=== PATIENT | female | born 2000 | race Hispanic/Latino ===

== ENCOUNTER 2023-06-23 18:00 | Inpatient (IN) | payer OTHER ==
[~2023-06-23 18:00] MED LIST: Bupivacaine 0.25% HCL 30 ML VIAL ONE; ePHEDrine 50 MG/ML VIAL ONE
[2023-06-23] MEDS ORDERED: Lidocaine 1% (PF) 30 ML VIAL SC PRN (20:41)
[2023-06-23] MEDS ORDERED: Tranexamic Acid 1,000 MG/10 ML VIAL IVP PRN (20:41)
[2023-06-23] MEDS ORDERED: hydrALAZINE 20 MG/ML VIAL SLOW IVP PRN (20:41)
[2023-06-23] MEDS ORDERED: Misoprostol 200 MCG TAB PR PRN (20:41)
[2023-06-23] MEDS ORDERED: Ondansetron PF 4 MG/2 ML Vial IVP PRN (20:41)
[2023-06-23] MEDS ORDERED: Methylergonovine 0.2 MG/ML VIAL IM PRN (20:41)
[2023-06-23] MEDS ORDERED: Carboprost 250 MCG/ML AMP IM PRN (20:41)
[2023-06-23] MEDS ORDERED: Promethazine HCl 25 MG/ML VIAL IM PRN (20:41)
[2023-06-23] MEDS ORDERED: Diphenoxylate HCl/Atropine Tablet PO PRN (20:41)
[2023-06-23] MEDS ORDERED: Penicillin G Potassium 5 MILL.UNITS in Sodium Chloride 0.9% 100 ML IVPB SCH (20:45)
[2023-06-23] MEDS ORDERED: Oxytocin 30 units/NS 500 ML 500 ML IV SCH ×2 (20:45)
[2023-06-23 21:31] LABS: Hematocrit 38.8 % (34.9-44.5); Hemoglobin 13.4 g/dL (12.0-15.5); Mean Corpuscular HGB CONC 34.5 g/dL (32.0-36.0); Mean Corpuscular Hemoglobin 30.1 pg (27.0-33.0); Mean Corpuscular Volume 87.2 fl (81.6-98.3); RBC Distribution Width 13.4 % (11.5-14.5); Red Blood Cell (RBC) Count 4.45 10x6/uL (3.90-5.03); White Blood Cell (WBC) Count 9.6 10x3/uL (3.5-10.5)
[2023-06-23 21:32] LABS: Mean Platelet Volume 11.3 fl (7.4-10.4); Platelet Count 248 10x3/uL (130-400)
[2023-06-23] MEDS: Misoprostol 100 MCG TAB VAG SCH (22:00)
[2023-06-23 22:14] LABS: HBSAg Index 0.13 S/CO (0-0.99); Hep B Surf Ag - L&D Non-Reactive S/CO (NonReactive)
[2023-06-23 22:15] LABS: Syphilis Antibody Nonreactive (Nonreactive); Syphilis Antibody Index 0.05 S/CO (<1.00 Non-Reactive)
[2023-06-24] MEDS: Misoprostol 100 MCG TAB VAG SCH ×3 (01:20→15:57)
[2023-06-24] MEDS: Penicillin G 2.5 MILL.units 2.5 MILL.UNITS in Premix 1 BAG IVPB SCH ×3 (02:52→14:14)
[2023-06-25] MEDS: Penicillin G 2.5 MILL.units 2.5 MILL.UNITS in Premix 1 BAG IVPB SCH ×4 (00:02→18:30)
[2023-06-25] MEDS ORDERED: fentaNYL 50 mcg/mL 1 mL Vial SLOW IVP PRN (03:23)
[2023-06-25] MEDS ORDERED: fentaNYL 50 mcg/mL 1 mL Vial ONE (06:41)
[2023-06-25] MEDS: fentaNYL 50 mcg/mL 1 mL Vial ONE (06:44)
[2023-06-25] MEDS: Lactated Ringer's 1,000 ML IV SCH ×2 (07:33→14:26)
[2023-06-25] MEDS ORDERED: fentaNYL 50 mcg/mL 1 mL Vial SLOW IVP SCH (08:00)
[2023-06-25] MEDS ORDERED: fentaNYL/Ropivacaine Epidural 100 ML ONE (08:49)
[2023-06-25] MEDS ORDERED: Lactated Ringer's 500 ML IV PRN (09:35)
[2023-06-25] MEDS ORDERED: Promethazine HCl 25 MG/ML VIAL IM PRN (09:35)
[2023-06-25] MEDS ORDERED: Ondansetron PF 4 MG/2 ML Vial IVP PRN (09:35)
[2023-06-25] MEDS ORDERED: Naloxone HCl 0.4 mg/ml Vial IVP PRN ×2 (09:35)
[2023-06-25] MEDS ORDERED: Acetaminophen 325 MG TAB PO PRN ×2 (09:35→21:10)
[2023-06-25] MEDS ORDERED: Moisturizing Cream (Eucerin) 113 GM JAR TOP PRN (09:35)
[2023-06-25] MEDS ORDERED: diphenhydrAMINE 50 MG/ML VIAL IVP PRN (09:35)
[2023-06-25] MEDS ORDERED: ePHEDrine Sulfate 50 MG/10 ML VIAL SLOW IVP PRN (09:35)
[2023-06-25] MEDS ORDERED: fentaNYL 2 mcg/Ropivacaine 0.2% Epidural 100 ML CADD EPIDURAL SCH (09:45)
[2023-06-25] MEDS ORDERED: Communication Order-Pharmacy FS SCH (09:45)
[2023-06-25] MEDS ORDERED: Lidocaine 1% (PF) 30 ML VIAL ONE (20:35)
[2023-06-25] MEDS ORDERED: Benzocaine-Menthol 82.5 ML CAN TOP PRN (21:07)
[2023-06-25] MEDS ORDERED: Lanolin Ointment 7 GM TUBE TOP PRN (21:07)
[2023-06-25] MEDS ORDERED: hydrALAZINE 20 MG/ML VIAL SLOW IVP PRN (21:07)
[2023-06-25] MEDS ORDERED: Milk Of Magnesia 30 ML UDCUP PO PRN (21:07)
[2023-06-25] MEDS ORDERED: Bisacodyl 10 MG SUPP PR PRN (21:07)
[2023-06-25] MEDS ORDERED: Boostrix 0.5 ML (Tdap) VIAL (>/=7 yrs of age) IM ONE (21:07)
[2023-06-25] MEDS ORDERED: Ibuprofen 800 MG TAB PO SCH (22:00)
[2023-06-25] MEDS: Ibuprofen 800 MG TAB PO SCH (23:44)
[2023-06-26 01:19] VITALS: BMI 42.0
[2023-06-26] MEDS: Ferrous Sulfate 325 MG TAB PO SCH ×2 (07:18→07:19)
[2023-06-26] MEDS: Misoprostol 100 MCG TAB VAG SCH ×3 (07:21→07:25)
[2023-06-26] MEDS: Penicillin G 2.5 MILL.units 2.5 MILL.UNITS in Premix 1 BAG IVPB SCH ×2 (07:21→07:24)
[2023-06-26] MEDS: fentaNYL 50 mcg/mL 1 mL Vial ONE (07:22)
[2023-06-26] MEDS: Docusate 100 MG CAP PO SCH ×2 (08:35→21:31)
[2023-06-26] MEDS: Prenatal Vitamin 1 TAB PO SCH (08:35)
[2023-06-26] MEDS: Ibuprofen 800 MG TAB PO SCH ×2 (08:36→15:48)
[2023-06-26] MEDS ORDERED: Polyethylene Glycol 3350 17 GM Packet PO PRN (10:49)
[2023-06-27] MEDS: Ibuprofen 800 MG TAB PO SCH ×2 (00:26→07:49)
[2023-06-27 07:46] VITALS: BP 104/50; TEMP 97.9
[2023-06-27] MEDS: Docusate 100 MG CAP PO SCH (07:48)
[2023-06-27] MEDS: Prenatal Vitamin 1 TAB PO SCH (07:48)
[2023-06-27] MEDS: Ferrous Sulfate 325 MG TAB PO SCH (10:52)
== END 2023-06-27 13:30 | disposition home or self-care (01) | DRG 807 ==
LOC: CSHLD 19:03 → CSHPP 06-25 23:08
PROVIDERS: ADMIT Obstetrics & Gynecology; ATTEND Obstetrics & Gynecology
PROC: 10E0XZZ Delivery of Products of Conception, External Approach (ICD-10-PCS; principal; 2023-06-25)
PROC: 10H07YZ Insertion of Other Device into Products of Conception, Via Natural or Artificial Opening (ICD-10-PCS; 2023-06-25)
PROC: 0HQ9XZZ Repair Perineum Skin, External Approach (ICD-10-PCS; 2023-06-25)
PROC: 0UQMXZZ Repair Vulva, External Approach (ICD-10-PCS; 2023-06-25)
DX: O48.0 Post-term pregnancy (principal); Z37.0 Single live birth; Z79.82 Long term (current) use of aspirin; Z79.899 Other long term (current) drug therapy; O99.824 Streptococcus B carrier state complicating childbirth; O99.214 Obesity complicating childbirth; O70.1 Second degree perineal laceration during delivery; Z3A.41 41 weeks gestation of pregnancy
CPT/HCPCS: 51702; 85027; 86780; 86850; 86900; 86901; 87340; J2540; J2590; J3010; J3490; J7120; S0020